=== PATIENT | female | born 2000 | race Caucasian/White ===

== ENCOUNTER 2022-03-16 18:53 | Outpatient (CLI) | payer OTHER ==
[~2022-03-16] VITALS: Ht 170.2 cm; Wt 131.8 kg
[2022-03-16 19:30] VITALS: BP 121/77; PULSE 70; TEMP 98.2
[2022-03-16] MEDS ORDERED: PROTONIX20 MG PO (19:54)
[2022-03-16] MEDS ORDERED: PRENATAL TABLET PO (19:56)
[2022-03-16] MEDS ORDERED: ASPIRIN 81M81 MG/TA2 PO (19:57)
--- NOTE | 2022-03-16 20:30 | NUR ---
1900 - PT ARRIVED TO UNIT AMBULATORY AND IN STABLE CONDITION. PT PRESENTS WITH COMPLAINT OF POSSIBLE SROM. PT STATES THAT SHE WOKE UP THIS MORNING AND NOTICED THAT HER UNDERWEAR WERE WET AND THAT SHE HAS CONTINUED TO HAVE INCREASED DISHARGE AND WET UNDERWEAR THROUGHOUT THE DAY. PT ALSO STATES SHE HAS BEEN CRAMPING SOME BUT DOES NOT FEEL LIKE THEY ARE CONTRACTIONS. ROM PLUS COLLECTED AND SENT TO LAB PER MD MJ ORDER PRIOR TO SVE. SVE PERFORMED AND PT FOUND TO BE 0/0/-3 WITH NO POOLING OR LEAKAGE OF FLUID AT THIS TIME. PAD UNDER PT ALSO REMAINS DRY AT THIS TIME. NITRAZINE ALSO COLLECTED AND RESULTS WERE NEGATIVE. 2009 - ROM PLUS RESULTS BACK FROM LAB AT THIS TIME AND WERE NEGATIVE. 2015 - MD MJ NOTIFIED (SEE PHYSICIAN NOTIFICATION) 2030 - PT DISCHARGED WITH ROUTINE DISCHARGE INSTRUCTIONS AND LABOR PRECAUTIONS. ALL QUESTIONS ANSWERED AND PT VERBALIZED UNDERSTANDING. PT LEFT AT THIS TIME AMBULATORY AND IN STABLE CONDTION.
== END 2022-03-16 20:30 | disposition home or self-care (01) ==
LOC: LDRO 18:53
DX: Z34.93 Encounter for supervision of normal pregnancy, unspecified, third trimester (principal); Z3A.35 35 weeks gestation of pregnancy